=== PATIENT | female | born 1990 | race American Indian/Alaskan Native ===

== ENCOUNTER 2017-10-18 15:49 | Emergency (ER) | payer MEDICAID ==
[2017-10-18] MEDS ORDERED: Sodium Chloride 0.9% 1,000 ML ONE (19:14)
== END 2017-10-18 16:05 | disposition left against medical advice (07) ==
LOC: C.ER 15:49
DX: Z02.89 Encounter for other administrative examinations (principal); R10.9 Unspecified abdominal pain

== ENCOUNTER 2017-10-18 16:27 | Emergency (ER) | payer MEDICAID ==
[2017-10-18 16:39] VITALS: O2SAT 100
[2017-10-18] MEDS ORDERED: Sodium Chloride 0.9% 1,000 ML IV ONE (19:09)
--- NOTE | 2017-10-18 19:09 | C.PDOC ---
History Of Present Illness 26 year old female presents to the emergency department with complaints of right upper quadrant pain for the last few days. Patient states that her belly "feels hard" after she eats. She denies fever, chills, nausea, and vomiting. Time Seen by Provider: 10/18/17 19:09 Chief Complaint (Nursing): Abdominal Pain History Per: Patient History/Exam Limitations: no limitations Onset/Duration Of Symptoms: Days Current Symptoms Are (Timing): Still Present Context: Food Severity: Moderate Pain Scale Rating Of: 4 Location Of Pain/Discomfort: RUQ Quality Of Discomfort: "Pain" Associated Symptoms: denies: Fever, Chills, Nausea, Vomiting Past Medical History Reviewed: Historical Data, Nursing Documentation, Vital Signs Vital Signs: Last Vital Signs Temp 98.2 F 10/18/17 18:55 Pulse 88 10/18/17 21:55 Resp 16 10/18/17 21:55 BP 122/78 10/18/17 21:55 Pulse Ox 100 10/18/17 22:55 - Medical History PMH: No Chronic Diseases Surgical History: No Surg Hx Family History: States: No Known Family Hx - Social History Hx Alcohol Use: Yes Hx Substance Use: No - Immunization History Hx Tetanus Toxoid Vaccination: Yes Hx Influenza Vaccination: Yes Hx Pneumococcal Vaccination: Yes Review Of Systems Constitutional: Negative for: Fever, Chills Gastrointestinal: Positive for: Abdominal Pain. Negative for: Nausea, Vomiting Physical Exam - Physical Exam Appears: Non-toxic, No Acute Distress Skin: Warm, Dry Head: Normacephalic Eye(s): bilateral: Normal Inspection Oral Mucosa: Moist Neck: Trachea Midline, Supple Chest: Symmetrical Cardiovascular: Rhythm Regular, No Murmur Respiratory: No Rales, No Rhonchi, No Wheezing Gastrointestinal/Abdominal: Soft, Tenderness (Right Upper Quadrant), No Distention, No Guarding, No Rebound Extremity: Bilateral: Normal Color And Temperature Pulses: Left Dorsalis Pedis: Normal, Right Dorsalis Pedis: Normal Neurological/Psych: Oriented x3 ED Course And Treatment - Laboratory Results Result Diagrams: 10/18/17 19:34 10/18/17 19:34 O2 Sat by Pulse Oximetry: 100 (RA) Pulse Ox Interpretation: Normal Progress Note: Plan: CMP. Lipase. CBC. PTT. Prothrombin Time. NaCl IV Fluids. HCG Qualitative Urine. Urinalysis. CT Abdomen and Pelvis Against Medical Advice - AMA Patient Left Against Medical Advice: The patient declines admission to the hospital and wishes to leave the Emergency Department. This action is against my medical advice. This decision was made with informed refusal. The patient was told that admission to the hospital is necessary. Explanation of the reasons why were discussed. The risks of leaving were explained to the patient and include, but are not limited to, worsening of known or currently unknown conditions, permanent disability and from undiagnosed or untreated conditions. The patient has the capacity to make this informed decision and understands my explanation of the current medical problem and risks of leaving. The patient voluntarily accepts these risks and signed an AMA form documenting our conversation. The patient was given the opportunity to ask questions and reconsider. The patient was encouraged to return to the Emergency Department at any time for further care. Disposition Counseled Patient/Family Regarding: Studies Performed, Diagnosis, Need For Followup - Disposition Referrals: [facility] [Outside] [facility] [Outside] Disposition: AGAINST MEDICAL ADVICE Disposition Time: 19:09 Condition: FAIR Additional Instructions: Please follow up with your edge blacker or return if symptoms recur Instructions: Acute Abdomen (Belly Pain), Adult (DC), Ovarian Cyst (DC) Forms: Ti Knight (Tajik) - Clinical Impression Clinical Impression: Abdominal pain, Ovarian cyst - Scribe Statement The provider has reviewed the documentation as recorded by the Scribe (Maciel Andino) Provider Attestation: All medical record entries made by the Scribe were at my direction and personally dictated by me. I have reviewed the chart and agree that the record accurately reflects my personal performance of the history, physical exam, medical decision making, and the department course for this patient. I have also personally directed, reviewed, and agree with the discharge instructions and disposition.
[2017-10-18 19:37] LABS: BASO # 0.1 K/uL (0.0-0.2); BASO % 0.6 % (0.0-2.0); EOS # 0.1 K/uL (0.0-0.7); EOS % 0.6 % (0.0-4.0); HEMOGLOBIN 13.1 g/dL (11.0-16.0); LYMPH # 1.9 K/uL (1.0-4.3); LYMPH % 19.5 % (20.0-40.0); MEAN CELL VOLUME 88.2 fL (81.0-99.0); MEAN CORPUSCULAR HEMOGLOBIN 30.7 pg (27.0-31.0); MEAN CORPUSCULAR HGB CONC 34.8 g/dL (33.0-37.0); MEAN PLATELET VOLUME 9.9 fL (7.2-11.7); MONO # 0.9 K/uL (0.0-0.8); MONO % 9.5 % (0.0-10.0); NEUT % 69.8 % (50.0-75.0); NRBC % 0.1 % (0.0-2.0); RBC 4.26 Mil/uL (3.80-5.20); RED CELL DISTRIBUTION WIDTH 12.9 % (11.5-14.5)
[2017-10-18 19:42] LABS: HCG,QUALITATIVE URINE NEGATIVE (NEGATIVE)
[2017-10-18 19:44] LABS: SQUAMOUS EPITHIAL < 1 /hpf (0-5); URINE AMORPHOUS SEDIMENT MODERATE /ul (<OCC); URINE BILIRUBIN NEGATIVE (NEGATIVE); URINE BLOOD NEGATIVE (NEGATIVE); URINE CLARITY Hazy (Clear); URINE COLOR Yellow (YELLOW); URINE GLUCOSE (UA) NORMAL (Normal); URINE LEUKOCYTE ESTERASE NEG Leu/uL (Negative); URINE PROTEIN NEGATIVE (NEGATIVE); URINE UROBILINOGEN NORMAL mg/dL (0.2-1.0)
[2017-10-18 19:47] LABS: INR 1.1; PROTHROMBIN TIME 12.1 SECONDS (9.7-12.2)
[2017-10-18 19:56] LABS: ALB/GLOB RATIO 1.3 (1.0-2.1); ALBUMIN 4.1 g/dL (3.5-5.0); ALT/SGPT 27 U/L (9-52); AST/SGOT 16 U/L (14-36); BLOOD UREA NITROGEN 13 mg/dL (7-17); CALCIUM 9.7 mg/dl (8.6-10.4); GFR AFRICAN-AMERICAN > 60; GFR NON-AFRICAN AMERICAN > 60; LIPASE 80 U/L (23-300)
[2017-10-18] MEDS ORDERED: Iodixanol 320 MG/ML 100 ML BOTTLE IV ONE (21:15)
[2017-10-19 00:46] VITALS: BP 126/88; PULSE 82; RESP 20; TEMP 98.4
--- NOTE | 2017-10-19 17:39 | CT ---
Date of service: 10/18/2017 PROCEDURE: CT Abdomen and Pelvis with contrast HISTORY: ruq pain COMPARISON: None. TECHNIQUE: Contrast dose: 100 mL Visipaque 320 intravenously. Axial and reformatted coronal and sagittal CT images of the abdomen and pelvis were obtained after IV contrast administration. Radiation dose: Total exam DLP = 279.19 mGy-cm. This CT exam was performed using one or more of the following dose reduction techniques: Automated exposure control, adjustment of the mA and/or kV according to patient size, and/or use of iterative reconstruction technique. FINDINGS: LOWER THORAX: Unremarkable. LIVER: The liver is mildly enlarged. GALLBLADDER AND BILE DUCTS: Unremarkable. PANCREAS: Unremarkable. No gross lesion or ductal dilatation. SPLEEN: Unremarkable. ADRENALS: Unremarkable. No mass. KIDNEYS AND URETERS: Unremarkable. No hydronephrosis. No solid mass. VASCULATURE: Unremarkable. No aortic aneurysm. BOWEL: Unremarkable. No obstruction. No gross mural thickening. APPENDIX: No definite CT evidence of acute appendicitis. PERITONEUM: Unremarkable. No free fluid. No free air. LYMPH NODES: Unremarkable. No enlarged lymph nodes. BLADDER: Unremarkable. REPRODUCTIVE: The uterus is heterogeneous [id number] enlarged contains enhancing soft tissue lesion likely represent fibroid. There is cystic lesion at the right pelvis measures 7.3 centimeter in the AP diameter 4.4 centimeter in the transverse diameter likely represent adnexal cyst or tubo-ovarian abscess. There is free fluid seen in the pelvis. BONES: No acute fracture. OTHER FINDINGS: None. IMPRESSION: No definite CT evidence of acute appendicitis. [id number] enlarged uterus contains enhancing soft tissue lesion likely represent fibroids. 7 centimeter cystic lesion at the right lower pelvis may represent right adnexal cyst or tubo-ovarian abscess. Clinical correlation and follow-up reassessment by ultrasound is suggested. Preliminary report was submitted by [facility]. .
--- NOTE | 2017-10-19 20:30 | US ---
Date of service: 10/18/2017 HISTORY: right adnexal mass, pain COMPARISON: Comparison is made with the previous same-day CT of the abdomen and pelvis. TECHNIQUE: Transabdominal ultrasound examination of the pelvis was performed. FINDINGS: UTERUS: Measures 16.1 x 8.9 x 10.7 cm. The uterus is heterogeneous. Multiple soft tissue lesion in the uterus suggestive of fibroids. The largest lesion is seen at the uterine fundus measures 7.4 x 4.9 x 7.7 centimeter. There is also anterior wall 4.4 x 3.8 x 4.9 centimeter fibroid. There is posterior uterine wall fibroid measures 4.7 x 4.3 x 4.5 centimeter. ENDOMETRIUM: Measures 9.6 mm in diameter. Unremarkable. CERVIX: No cervical abnormality identified. RIGHT OVARY: Measures 8.7 x 5.3 x 7.5 cm. No solid mass. Normal flow. There is a cyst seen at the right ovary measures 7.35 x 4.1 x 4.78 centimeter. LEFT OVARY: The left ovary was not visualized. FREE FLUID: No significant free fluid noted. OTHER FINDINGS: None. IMPRESSION: Moderately enlarged heterogeneous uterus contains multiple soft tissue lesions suggestive of fibroids. The largest presumed fibroid is seen at the uterine fundus measures 7.4 centimeter. 7.3 centimeter cyst at the right adnexa. Follow-up exam is recommended. Left ovary was not visualized. Preliminary report was submitted by [facility].
== END 2017-10-18 23:30 | disposition left against medical advice (07) ==
LOC: C.ER 16:27
DX: R10.11 Right upper quadrant pain (principal); N83.201 Unspecified ovarian cyst, right side
CPT/HCPCS: 74177; 76856; 80053; 81001; 83690; 84703; 85025; 85610; 85730; 96360; 99285; J7030; Q9967